=== PATIENT | female | born 1990 | race Caucasian/White ===

== ENCOUNTER 2019-06-30 16:43 | Emergency (ER) | payer BC, OTHER ==
[~2019-06-30] VITALS: Ht 175.3 cm; Wt 121.4 kg
[~2019-06-30 16:43] MED LIST: CIPR2.5D18 LEFTEYE; CYCL-1 PO; NO HOME MEDS
[2019-06-30] MEDS ORDERED: ketorolac tromethamine 15mg/ml inj. IM ONE (17:55)
[2019-06-30 19:44] VITALS: BP 142/92
== END 2019-06-30 19:45 | disposition home or self-care (01) ==
LOC: ER 16:45
DX: R51 Headache (principal); Z60.2 Problems related to living alone; Z79.899 Other long term (current) drug therapy
CPT/HCPCS: 70450; 96372; 99284; J1885

== ENCOUNTER 2022-05-05 08:51 | Emergency (ER) | payer BC ==
[~2022-05-05] VITALS: Ht 175.3 cm; Wt 125.0 kg
[~2022-05-05 08:51] MED LIST changes: +CIPR2.5D14 LEFTEYE; -CIPR2.5D18 LEFTEYE
[2022-05-05 09:10] VITALS: BP 144/78
[2022-05-05] MEDS ORDERED: IBUP-1986 PO (10:25)
== END 2022-05-05 10:55 | disposition home or self-care (01) ==
LOC: ER 08:51
DX: M25.562 Pain in left knee (principal)
CPT/HCPCS: 73564; 99284; A6449

== ENCOUNTER 2022-09-29 10:14 | Emergency (ER) | payer BC ==
[~2022-09-29] VITALS: Ht 175.3 cm; Wt 125.0 kg
[~2022-09-29 10:14] MED LIST changes: +IBUP-1986 PO
[2022-09-29 11:12] VITALS: BP 165/98
[2022-09-29] MEDS ORDERED: dexamethasone sod phosphate 10mg/ml inj PO STA (14:03)
[2022-09-29] MEDS ORDERED: ALBU90AE INH (14:04)
== END 2022-09-29 14:19 | disposition home or self-care (01) ==
LOC: ER 10:14
DX: J40 Bronchitis, not specified as acute or chronic (principal); J45.909 Unspecified asthma, uncomplicated; Z79.899 Other long term (current) drug therapy
CPT/HCPCS: 99283; J1100

== ENCOUNTER 2024-01-05 05:15 | Emergency (ER) | payer BC ==
[~2024-01-05] VITALS: Ht 175.3 cm; Wt 129.4 kg
[~2024-01-05 05:15] MED LIST changes: +ALBU90AE INH; +CIPR2.5D12 LEFTEYE; -CIPR2.5D14 LEFTEYE
[2024-01-05 06:38] LABS: ALBUMIN 3.4 G/DL (3.4-5.0); ANION GAP 11 (8-16); BLOOD UREA NITROGEN 11 MG/DL (7-18); BUN/CREATININE RATIO 13.3 (10.0-20.0); CHLORIDE 104 MMOL/L (99-107); CREATININE 0.83 MG/DL (0.40-0.90); GLUCOSE 136 MG/DL (70-104); PRO BRAIN NATRIURETIC PEPTIDE < 30 PG/ML (0-125); SODIUM 138 MMOL/L (135-145); TOTAL CARBON DIOXIDE 23.5 MMOL/L (24-32); eCRCL 101 ML/MIN; eGFR 79 ML/MIN
[2024-01-05 06:41] LABS: POTASSIUM 4.3 MMOL/L (3.5-5.1)
[2024-01-05] MEDS: ipratropium/albuterol 3ml nebule NEB ONE (07:38)
[2024-01-05 07:42] VITALS: PULSE 102; RESP 12; O2SAT 94
[2024-01-05 07:52] VITALS: PULSE 124; RESP 12; O2SAT 100
[2024-01-05] MEDS: LORazepam 2 mg/ml vial IV ONE (08:05)
[2024-01-05] MEDS: methylPREDNISolone sod succ 125mg/2ml vial IV ONE (08:05)
[2024-01-05] MEDS: ibuprofen tablet 400 MG TABLET PO ONE (08:06)
[2024-01-05] MEDS: normal saline 1000ML IV soln IVB ONE (08:06)
[2024-01-05 09:53] LABS: URINE HCG NEGATIVE (NEG)
[2024-01-05 10:40] LABS: BASOPHILS % (AUTO) 0.3 % (0-1); EOSINOPHILS % (AUTO) 0.4 % (0-6); HEMATOCRIT 36.4 % (35.0-45.0); HEMOGLOBIN 11.8 g/dl (12.0-16.0); LYMPHOCYTES # (AUTO) 0.8 X10'3 (1.1-4.8); LYMPHOCYTES % (AUTO) 7.3 % (21-51); MEAN CORPUSCULAR HEMOGLOBIN 25.4 PG (27.0-31.0); MEAN CORPUSCULAR HGB CONC 32.4 g/dL (33.0-36.5); MEAN CORPUSCULAR VOLUME 78.3 FL (78-98); MEAN PLATELET VOLUME 8.8 FL (7.4-10.4); MONOCYTES # (AUTO) 0.3 X10'3 (0-0.9); MONOCYTES % (AUTO) 2.5 % (2-12); NEUTROPHILS # (AUTO) 9.3 X10'3 (1.8-7.7); NEUTROPHILS % (AUTO) 89.5 % (42-75); PLATELET COUNT 264 X10'3 (140-440); RED BLOOD COUNT 4.65 X10'6 (4.20-5.60); RED CELL DISTRIBUTION WIDTH 15.3 % (11.5-14.5); WHITE BLOOD COUNT 10.4 X10'3 (4.5-11.0)
[2024-01-05 10:51] LABS: PROTHROMBIN TIME 10.4 SECONDS (9.0-12.0)
[2024-01-05] MEDS ORDERED: AMOX-117 PO (11:57)
[2024-01-05] MEDS ORDERED: ALBU8HFA INH (11:57)
[2024-01-05] MEDS ORDERED: PRED20TA PO (11:57)
[2024-01-05 12:16] VITALS: BP 118/78; PULSE 101; RESP 14; O2SAT 96
[2024-01-05 12:17] VITALS: TEMP 98.8
== END 2024-01-05 12:21 | disposition home or self-care (01) ==
LOC: ER 05:16
DX: U07.1 COVID-19 (principal); J45.909 Unspecified asthma, uncomplicated; Z79.2 Long term (current) use of antibiotics; Z79.899 Other long term (current) drug therapy
CPT/HCPCS: 36415; 71045; 80048; 81025; 83605; 83880; 84484; 85025; 85610; 87040; 93005; 94640; 96361; 96374; 96375; 99285; J2060; J2930; J7030; 94760